=== PATIENT | female | born 1995 | race Native Hawaiian/Other Pacific Islander ===

== ENCOUNTER 2020-09-14 15:46 | Outpatient (CLI) | payer OTHER | END 2020-09-14 21:17 | disposition home or self-care (01) | LOC: INF 15:46 | PROVIDERS: ATTEND Internal Medicine | DX: Z23 Encounter for immunization (principal) | CPT/HCPCS: 96372 ==

== ENCOUNTER 2020-10-11 15:06 | Outpatient (CLI) | payer BC, OTHER | END 2020-10-11 21:34 | disposition home or self-care (01) | LOC: INF 15:06 | PROVIDERS: ATTEND Internal Medicine | DX: Z23 Encounter for immunization (principal) | CPT/HCPCS: 96372 ==